=== PATIENT | female | born 2005 | race African-American/Black ===

== ENCOUNTER 2025-06-04 13:54 | Emergency (ER) | payer OTHER, SELFPAY ==
[2025-06-04 14:14] VITALS: BP 110/53; PULSE 63; RESP 16; TEMP 36.1; O2SAT 100; BMI 27.5
--- NOTE | 2025-06-04 14:16 | ED.GENADULT ---
HPI - General Adult General Chief complaint: Urogenital-Female Stated complaint: yeast infection? Time Seen by Provider: 06/04/25 14:15 Source: patient, RN notes reviewed and old records reviewed Mode of arrival: ambulatory Limitations: no limitations History of Present Illness ED Provider: Duane RICH narrative: 20-year-old female presents for evaluation of vaginal discharge with itching and irritation. The patient believes that she has a yeast infection. She was treated for a UTI and bacterial vaginosis to be getting this month complaining 2 courses of antibiotics She initially had some mild increase in vaginal discharge She reports that she did not take probiotics during or after the antibiotics. She reports drinking increase water with no change in his symptoms She has a primary doctor but not in OBGYN Related Data Previous Rx's ?Medication ?Instructions ?Recorded fluconazole 100 mg tablet 100 mg PO DAILY #2 tabs 06/04/25 (Diflucan) Allergies Allergy/AdvReac Type Severity Reaction Status Date / Time No Known Allergies Allergy Verified 06/04/25 14:16 Review of Systems Constitutional: Constitutional: Denies chills and Denies fever(s) Eyes: Eyes: Denies blurry vision Gastrointestinal: Gastrointestinal: Denies abdominal pain and Denies belching Genitourinary: Genitourinary: Reports vaginal discharge and Reports vaginal pruritus PMFSH Social History Social History Advance Directives: No Advance Directives Information Provided: Yes Physical Exam ED Vital Signs: Vital Signs - 24 hr 06/04/25 14:14 Temperature 96.9 F Pulse Rate 63 Respiratory Rate 16 Blood Pressure 110/53 L Pulse Oximetry 100 Oxygen Delivery Method Room Air BMI result Body Mass Index 27.5 Const General: healthy appearing, comfortable, no acute distress, alert and awake Nutritional Appearance: well nourished Orientation/consciousness: patient oriented x3 HENMT Head: Yes normocephalic and Yes atraumatic Eyes Eyelids: Yes eyelids normal Conjunctivae: conjunctivae normal Sclerae: sclerae normal Corneas: corneas normal Pupils: Equal, round and reactive pupils present EOM: EOMs intact bilaterally Neck Neck: Yes full ROM Resp Effort & Inspection: normal respiratory effort, able to speak in complete sentences and not labored Skin General skin exam: elasticity normal Neuro General: patient oriented x3 Cranial nerves: Yes Equal, round and reactive pupils present and Yes Bilaterally intact EOM present Cognition (Neuro): normal cognition Extrem Other: Moving all extremities well without any obvious deformities Medical Decision Making Medical Decision Making MDM Narrative: 20-year-old female presents for evaluation of vaginal itching and discharge. Clinically her diagnosis most likely vulvovaginal candidiasis as she was recently treated with 2 different antibiotics and did not use probiotics. She reports that she was also tested for sexually transmitted infections and was negative. I have a very low suspicion for PID and therefore we will treat with Diflucan. I encouraged the patient to follow up with her primary doctor for a pelvic examination return to the ER she is still symptomatic after completing a course of Diflucan Differential Diagnosis Differential Diagnoses: The differential diagnosis associated with the presentation includes Vaginitis Vulvovaginal candidiasis Yeast infection UTI Tests considered The following testing was considered but not selected: Recommended testing however the patient reports that she is not sexually active with men Discharge Plan Discharge Clinical Impression: Vaginitis Patient Disposition: Home, Self-Care Instructions: Yeast Infection (ED) Additional Instructions: Your symptoms are likely attributed to a yeast infection. Take Diflucan 1 dose today and then an additional dose in 1 week if you are still having symptoms. I recommend that you follow up with your primary doctor for a pelvic exam if you are still having symptoms after the 2nd dose of Diflucan Return for new or worsening symptoms Prescriptions: New fluconazole [Diflucan] 100 mg tablet 100 mg PO DAILY Qty: 2 0RF Rx Instructions: Take 1 tab today and 1 tab in 7 days if he remains symptomatic Print Language: Indonesian
[2025-06-04 14:42] VITALS: BP 110/53; PULSE 63; RESP 16; TEMP 36.1; O2SAT 100
--- OUTSIDE RECORDS SUMMARY | 2025-06-04 15:11 | XMS_ITS | Clinical Summary ---
Author Organization [facility] Address [address] [place] [address] Care Team Providers Care Diesel Plant Operator Name Role Phone Unavailable Primary Care Provider Unavailabl e Source Comments PLEASE NOTE, if this patient is a minor, it may be UNLAWFUL to discuss sensitive information that is contained in these records (such as FAMILY PLANNING, MENTAL HEALTH or SUBSTANCE ABUSE) with the minor patient's parent or other person without the patient's specific authorization.[facility] Medications No known medications Active Problems No known active problems Social History Tobacco Use Types Packs/Day Years Used Date Smoking Tobacco: Never Assessed Social Connections Answer Date Recorded Social Connections and Isolation 0 08/20/2020 Financial Resource Strain Answer Date R ecorded Financial Resource Strain 0 2019 Stress Answer Date Recorded Stress 0 08/20/2020 Physical Activity Answer Date Recorded Physical Activity 0 08/20/2020 Food Insecurity Answer Date Recorded Food 0 08/20/2020 Transportation Needs Answer Date Record ed Transportation 0 08/20/2020 Housing Stability Answer Date Recorded Housing 0 08/20/2020 Safety and Environment Answer Date Paul rded Safety 0 08/20/2020 Utilities Answer Date Recorded Utilities 0 08/20/2020 Employment Answer Date Recorded Employment 0 08/20/2020 Comments Unknown Sex and Gender Information Value Date Recorded Sex Assigned at Not on file Legal Sex Female 1:10 PM PDT Gender Identity Not on file Sexual Orientation Not on file Plan of Treatment Not on file Insurance [facility] [place] [id number] [facility] FAMILY PLANNING [place]
== END 2025-06-04 14:42 | disposition home or self-care (01) ==
PROVIDERS: Emergency Provider Emergency Medicine
DX: N76.0 Acute vaginitis (principal); L29.9 Pruritus, unspecified
CPT/HCPCS: 99282; 99283

== ENCOUNTER 2025-07-02 13:55 | Outpatient (REF) | payer OTHER, SELFPAY ==
[2025-07-03 12:06] LABS: Bacterial Vaginosis PCR NEGATIVE (Negative); Candida Group PCR DETECTED (Not Detect); Candida glab krusei PCR NOT DETECTED (Not Detect); Trichomonas vaginalis PCR NOT DETECTED (Not Detect)
== END 2025-07-02 13:56 | disposition home or self-care (01) ==
LOC: HO.LAB 13:55
PROVIDERS: Visit Provider Physician Assistant Medical
DX: N89.8 Other specified noninflammatory disorders of vagina (principal); R21 Rash and other nonspecific skin eruption
CPT/HCPCS: 81515

== ENCOUNTER 2025-07-02 13:55 | Outpatient (AMB) | payer OTHER, SELFPAY ==
[2025-07-02 13:59] VITALS: BP 102/50; PULSE 63; TEMP 37; O2SAT 96; BMI 29.9
--- NOTE | 2025-07-02 13:59 | AM.OFFWIN_ITS ---
Intake Vital Signs 07/02/25 13:59 Height 5 ft 3 in Weight 169 lb BMI 29.9 BP 102/50 L Blood Pressure Location Rt brachial Position Sitting Pulse 63 Pulse Source Pulse Oximeter Temp 98.6 F Temp Source Oral Pulse Oximetry (%) 96 Oxygen Delivery Method Room Air Intake Visit Reasons: EP Yeast infection? Intake Note: pt presents with concern for yeast infection, c/o redness, itch and flaking to skin of vaginal and anal area- denies any urinary tract s/s Allergies No Known Allergies Allergy (Verified 07/02/25 14:00) Do you need a note to return to daycare/school/sports/work: Yes HPI HPI Comments History of Present Illness Details History of Present Illness - The patient is a 20-year-old female pr esenting with symptoms suggestive of a recurrent yeast infection. - She reports redness, thicker discharge , and irritation, which she associates with a yeast infection. - Symptoms began towards the end of her menstrual period, approximately a week ago. - She has a history of urinary tract inf ection treated with antibiotics, which previously led to a yeast infection. - The patient was treated for bacterial vaginosis and urinary tract infection in the past, with subsequent development of a yeast infection. - She describes the discharge as thicker and white, with no significant odor, consistent with candidiasis. - The patient reports a similar episode of yeast infection following antibiotic treatment for a urinary tract infection. - She had her menses last week. - She denies vaginal discharge, abd pain , n/v/d, back pain, CP, SOB, fever, chills, or hematuria. Physical Exam General: Cooperative, healthy appearing, comfortable, no acute distress and well developed Orientation: Patient oriented x3 Respiratory: Normal respiratory effort and able to speak in complete sentences. Clear to auscultation bilaterally Cardiovascular: Regular rate and rhythm. Normal S1 and S2 GI: Normal to inspection. Soft to palpation and nontender : Erythema and white discharge noted in the vaginal vault. Erythema noted in the perineum and around anus. Skin: Redness, flaking, dry skin noted in the perineum. Patient was informed and verbally consented to the use of an ambient scribe for clinic note documentation during this visit. Review of Systems Const All systems reviewed & are unremarkable except as noted in HPI and below Physical Exam Vital Signs: Last Vital Signs Temp 98.6 F 07/02/25 13:59 Pulse 63 07/02/25 13:59 BP 102/50 L 07/02/25 13:59 Pulse Ox 96 07/02/25 13:59 Oxygen Delivery Method Room Air 07/02/25 13:59 BMI result Body Mass Index 29.9 Assessment & Plan Assessment & Plan (1) Vaginal discharge: Code(s): N89.8 - Other specified noninflammatory disorders of vagina (2) Rash: Code(s): R21 - Rash and other nonspecific skin eruption Plan Most likely candidiasis vs BV vs STD plan - Prescribed antifungal treatment with oral medication to be taken today and in three days. - Recommended swab testing to confirm diagnosis and rule out other infections. - miconazole cream to the area - recommend f/u with OBGYN - will call her with the results - follow up with PCP Orders: Orders Bacterial Vaginosis Panel Today N89.8 - Other specified noninflammatory disorders of vagina Medications: New miconazole nitrate 2% 1 appl topical BID 15 grams 0RF 7 days fluconazole may repeat second dose 72 hrs after first dose if symptoms persist 150 mg PO Q3D 2 tabs 0RF Discontinued fluconazole (Diflucan) Take 1 tab today and 1 tab in 7 days if he remains symptomatic Discontinued Reason: Patient Completed Course 100 mg PO DAILY 2 tabs 0RF Coding Level of Care Code Est Pt Level 3 (69925) Diagnoses Vaginal discharge N89.8 Rash R21
--- OUTSIDE RECORDS SUMMARY | 2025-07-02 14:48 | XMS_ITS | Clinical Summary ---
Author Organization [facility] Address [address] [place] [address] Care Team Providers Care Pediatric Anesthesiologist Name Role Phone Unavailable Primary Care Provider [...] Plan of Treatment Not on file Insurance [facility] [place] [id number] [facility] FAMILY PLANNING [place]
--- OUTSIDE RECORDS SUMMARY | 2025-07-02 14:48 | XMS_ITS | Clinical Summary ---
Author Organization [facility] Address [address] [place] [address] Phone Care Team Providers Care Manager Produce Name Role Phone Jewell Echols MD Primary Care Provider + Allergies No known active allergies Medications Hospital, Clinic, or Other Facility Administered Medication Ordered Dose Route Frequency Start Date End Date Status etonogestreL (NEXPLANON) subdermal implant 68 mg 68 mg IDrm Every 3 years 11/19/2020 Active Active Problems Patient Care Coordination No te Formatting of this note migh t be different from the original. Patient cell phone: [phone] Problem Noted Date Diagnosed Date Chlamydia 07/19/2022 Assessment & Plan (07/19/2022 2:48 PM EDT): Cassidy is a 17-year-old female who presents for follow-up of her positive chlamydia test from 07/13/2022. She reports that she had seen Dr. Echols because she was having some dysuria. She initially thought it was a UTI and but that was negative. She was also tested for STIs at that time and a chlamydia tested positive on 07/13/2022. Patient reports that she has been with her boyfriend of 2 months and has been monogamous with him. They are not been using condoms consistently. Past history significant for chlamydia when she was at [facility] in 07/15/2021, for which she was treated with azithromycin. On reviewing the notes there was no evidence of any repeat testing after the initial positive result. The patient is asymptomatic with no dysuria or vaginal discharge or abdominal pain. She has been tested for HIV and syphilis at the last visit with Dr. Echols and both of those were negative. Of note on reviewing the chart from [facility], she has a positive hepatitis C antibody, with a negative hepatitis C RNA in July 2021. I did asked the patient about risk of .Patient reports that she has a contraceptive implant and so does not get her menses regularly. Plan: 1. Discussed sexually transmitted infections including chlamydia. Reinforced that she must take a medication and also have her partner treated. I gave her a prescription for expedited partner treatment and explained she could take it to the pharmacy to have it filled. I recommended that she return to the clinic in about 3 months so that she can can re-test and make sure that she is not reinfected. Discouraged unprotected sexual activity until both partners have been treated effectively for 7 days. 2. I also recommended that she follow-up with Dr. Echols about the hepatitis C antibody. She did not want to do any blood test today and her viral RNA had been negative in the past. She will follow-up with Dr. Echols about this when she sees her in September when she has an appointment. Patient expressed understanding Patient expressed understanding of treatment and consequences of chlamydia, and the importance of getting her partner treated. Vasovagal syncope 09/09/2020 Assessment & Plan (09/09/2020 5:00 PM EST): Had a few episodes in the past, one associated with smoking hookah, another when getting off the toilet 3 months ago. Went to the ED at that time and EKG was normal, told to get up more slowly. Hasn't been drinking any water during the day. Encouraged more water intake. Subluxation of patella, left, initial encounter 09/09/2020 Assessment & Plan (09/09/2020 4:59 PM EST): Happens once every year, about three times in total. Will be exercising and feels like something pops out of place. Very painful, will stop exercising and seems to pop back into place but has some swelling afterwards. In between episodes is totally fine. Symptoms consistent with subluxation of patella. Exam normal in the office today. Plan: - Given knee strengthening exercises as well as stretching exercises - If continues to bother her, or starts occurring more often, can send to PT Vaginal discharge 09/09/2020 Assessment & Plan (09/09/2020 4:57 PM EST): Last sexual intercourse 2-3 weeks ago, since then has been having vaginal discharge that is slightly different from normal - more clear and smells metallic . No itchiness, no purulent discharge. No abdominal pain, fevers, N/V. On exam, appeared normal but maybe slightly hobbs. Already had STD testing after last intercourse that was negative. Plan - Will send culture for BV, will call patient with results Overweight 09/09/2020 Immunizations Immunization Administration Dates Next Due COVID-19 (Pre-08/28) Pfizer Vaccine, mRNA, PF [id number] FORMULATION 08/24/2009 HPV,quadrivalent 03/26/2015 INFLUENZA, SPLIT VIRUS, TRIVALENT W/ PRESERVATIV E IM 11/29/2012,08/24/2009 Influenza Quadrivalent Preservative Free IM 09/06,09/09/2020 Meningococcal MCV4O 09/09/2020 Meningococcal MPSV4 03/26/2015 Tdap 03/26/2015 Family History Medical History Relation Comments Cervical cancer Maternal Aunt Coronary artery disease Maternal Grandfather Heart disease Maternal Grandfather Diabetes Maternal Grandmother Coronary artery disease Mother Heart disease Mother Hypertension Mother Aneurysm Paternal Grandmother Relation Status Comments Brother Alive Father Alive Maternal Aunt Maternal Grandfather Alive Maternal Grandmother Alive Mother Alive Paternal Grandfather Alive Paternal Grandmother Alive Social History Tobacco Use Types Packs/Day Years Used Date Smoking Tobacco: Never Smokeless Tobacco: Never Tobacco Cessation:Counseling Given: Not Answered Alcohol Use Standard Drinks/Week Comments Yes 0 (1 standard drink = 0.6 oz pur e alcohol) socially Child or Family Care Answer Date Record ed Do you have problems with on e of the following making it difficult for you to work, study, or receive health care? No 09/21/2022 Education Answer Date Recorded Are you interested in more education? Not on cherry e 10/02/2024 Are you concerned about learning? Not on file 10/02/2024 No 10/02/2024 No 10/02/2024 Food Answer Date Recorded Within the past 6 months we worried whether our food would run out before we got money to buy more. Never True 09/21/2022 Within the past 6 months the food we bought just didn't last and we didn't have enough money to get more. Never True Residential Stability Answer Date Recor ded What is your housing situation today? I have yue mccray 09/21/2022 How many times have you move d in the past 12 months? Zero (I did not move) 09/21/2022 Paying for Meds Answer Date Recorded Do you have trouble paying for medicines? No 09/21/2022 Paying Utility Bills Answer Date Record ed Do you have trouble paying your heating or elect ricity bill? No 09/21/2022 Transportation Answer Date Recorded Has the lack of transportati on kept you from medical appointments or from getting medications? Yes 09/21/2022 Unemployment Answer Date Recorded Are you currently unemployed or working on a part-time or temporary basis, and looking for work? No 09/21/2022 Digital Access Answer Date Recorded No 04/01/2023 No 04/01/2023 Reliable internet access at home? Not on file 04/01/2023 Device with a working camera? Not on file Intimate Partner Violence Answer Date R ecorded Are you denied basic needs s uch as food, clothing, or medical care? No 03/09/2025 In the past 12 months have y ou been in a relationship with a person who hurts, threatens, or tries to control you? No 03/09/2025 Are you denied basic needs s uch as food, clothing, or medical care? No 03/09/2025 In the past 12 months have y ou been in a relationship with a person who hurts, threatens, or tries to control you? No 03/09/2025 Comments No Sex and Gender Information Value Date Recorded Sex Assigned at Not on file Legal Sex Female 4:33 PM EDT Gender Identity Not on file Sexual Orientation Not on file Last Filed Vital Signs Vital Sign Reading Time Taken Comments Blood Pressure 114/73 03/09/2025 1:08 PM EDT Pulse 92 03/09/2025 1:08 PM EDT Temperature 36.8 C (98.3 F) 03/09/2025 1:08 PM EDT Respiratory Rate 19 03/09/2025 1:08 PM EDT Oxygen Saturation 100% 03/09/2025 1:08 PM EDT Inhaled Oxygen Concentration - - Weight 69.9 kg (154 lb 1.6 oz) 03/09/2025 1:04 P M EDT Height 161 cm (5' 3.39 ) 09/21/2022 1:02 PM EST Body Mass Index 26.97 09/21/2022 1:02 PM EST Plan of Treatment Health Maintenance Due Date Last Done Comments MMR VACCINES (1 of 1 - Standard series) 2005 COMBINED DTaP,Tdap,Td (2 - Td or Tdap) 04/23/2015 03/26/2015 HPV VACCINES (2 - 2-dose series) 09/26/2015 03/26/2015 MENINGOCOCCAL VACCINES (B) (1 of 2 - Standard) 2020 DEPRESSION SCREENING 09/21/2023 09/21/2022, 09/21/20 22 Contraceptive Implant 11/19/2023 11/19/2020 COVID-19 VACCINE ( season) 2024 07/14/2021, 03/24/2021 PAP SMEAR 2025 Adult Td,Tdap Booster 03/26/2025 03/26/2015 CHLAMYDIA SCREENING 03/09/2026 03/09/2025, 03/09/2025, 03/09/2025, Additional history exists SMOKING Hx and SMOKELESS TOBACCO SCREENING 03/09/2026 03/09/2025 MENINGOCOCCAL VACCINES (ACWY) Completed 09/09/2020, 03/26/2015 ADOLESCENT UNIVERSAL LIPID SCREENING Completed 07/13/2022 HEPATITIS C SCREENING Completed 09/21/2022, 022 HIV ONE-TIME SCREENING (18-65 YEARS) Completed 03/09/2025 HEPATITIS A VACCINES Aged Out No long er eligible based on patient's age to complete this topic HIB VACCINES Aged Out No longer eligi ble based on patient's age to complete this topic PNEUMOCOCCAL VACCINES (0-49 years) Aged Out No longer eligible based on patient's age to complete this topic Medical Devices Not on file Procedures Procedure Name Priority Date/Time Associated Diagnosis Comments CHLAMYDIA TRACHOMATIS AND NEISSERIA GONORRHOEAE NUCLEIC ACID DETECTION STAT 03/09/2025 1:32 PM EDT HEPATITIS C ANTIBODY, QUALITATIVE Routine 09/21/2022 1:47 PM EST Need for hepatitis C screening test LIPID PANEL Routine 07/13/2022 2:42 PM EDT Healthcare maintenance from Last 3 Months or Most Recently Relevant to Health Maintenance Results * (ABNORMAL) Chlamydia Trachomatis and Neisseria Gonorrhoeae Nucleic Acid Detection (03/09/2025 1:32 PM EDT) C.TRACHOMATIS, AMP Refused(A ) Chlamydia trachomatis (CT) DNA NOT DETECTED [facility] Comment: Collection method not acceptable. IMPROPER SPECIMEN CONTAINER RECEIVED CULTURETTE NEEDED EM PCR YELLOW TOP TUBE Specimen type (C. Trachomatis DNA) THROAT [facility] N.Gonorrhoeae, AMP Refused(A ) Neisseria Gonorrhoeae (NG) DNA NOT DETECTED [facility] Comment: Collection method not acceptable. IMPROPER SPECIMEN CONTAINER RECEIVED CULTURETTE NEEDED EM PCR YELLOW TOP TUBE Specimen type THROAT [facility] Other (Throat) 03/09/2025 1: 32 PM EDT 03/09/2025 1:57 PM EDT us Carrie Galeas MD NON CULTURE MICROBIOLOGY [facility] Result Performing Organization Address City/[facility]/ZIP Co de Phone Number [address] [address] * Hepatitis C antibody, qualitative (09/21/2022 1:47 PM EST) HCV ANTIBODY Negative Negative [facility] Comment:Antibodies to HCV no t detected. Does not exclude the possibility of exposure to HCV. 09/21/2022 1:47 PM EST 09/21/2022 5:58 PM EST us Jewell Echols MD LAB BLOOD ORDERABLES Fin al Result Performing Organization Address [facility]/ZIP Co de Phone Number [address] [address] * (ABNORMAL) Lipid panel (07/13/2022 2:42 PM EDT) HDL 52 35 - 100 mg/dL [facility] CHOLESTEROL 116 <200 mg/dL [facility] TRIGLYCERIDES 24(L) 40 - 150 mg/dL [facility] LDL 59 50 - 129 mg/dL [facility] CARDIAC RISK RATIO 2.2 0.0 - 5.0 [facility] NON-HDL CHOLESTEROL 64 mg/dL [facility] Comment:NCEP ATP III guideli nate suggest a non-HDL cholesterol goal 30 mg/dl higher than the patient-specific LDL goal. 07/13/2022 2:42 PM EDT 07/13/2022 7:52 PM EDT us Jewell Echols MD LAB BLOOD ORDERABLES Fin al Result [address] [address] from Last 3 Months or Most Recently Relevant to Health Maintenance Insurance EMPLOYEES FAMILY EMPLOYEES FAMILY EMPLOYEES FAMILY EMPLOYEES FAMILY EMPLOYEES FAMILY [facility] FAMILY EMPLOYEES FAMILY EMPLOYEES FAMILY EMPLOYEES FAMILY EMPLOYEES FAMILY EMPLOYEES FAMILY [facility] EMPLOYEES FAMILY [facility] EMPLOYEES FAMILY * Guarantor: RAJANI KELLER Account Type Relation to Patient Date of Phone Billing Address Personal/Family [address] [place] [address] EMPLOYEES FAMILY * Guarantor: RAJANI KELLER Account Type Relation to Patient Date of Phone Billing Address Personal/Family [address] [place] [address] [employer] FAMILY * Guarantor: RAJANI KELLER Account Type Relation to Patient Date of Phone Billing Address Personal/Family [address] [place] [address] [employer] FAMILY * Guarantor: RAJANI KELLER Account Type Relation to Patient Date of Phone Billing Address Personal/Family [address] [place] [address] [employer]ES FAMILY * Guarantor: RAJANI KELLER Account Type Relation to Patient Date of Phone Billing Address Personal/Family [address] [place] [id number] [place] [address] EMPLOYEES FAMILY Care Teams Manager Produce Relationship Specialty Start Date End Date Jewell Echols MD [address] [address] [email or web address] PCP - General Adolescent Medicine 09/09/20 Additional Source Comments The information contained in this document represents components of the legal health record. It is not the complete legal health record.[facility]
== END 2025-07-02 15:05 | disposition home or self-care (01) ==
PROVIDERS: Visit Provider Physician Assistant Medical
DX: N89.8 Other specified noninflammatory disorders of vagina (principal); R21 Rash and other nonspecific skin eruption

== ENCOUNTER 2025-08-05 09:32 | Emergency (ER) | payer OTHER, SELFPAY ==
[2025-08-05 09:51] VITALS: BP 127/76; PULSE 92; RESP 16; TEMP 36.6; O2SAT 100; BMI 29.9
[2025-08-05 10:27] LABS: IDNOW Serial# 55D5AD1C; Influenza B2 Negative (Negative)
[2025-08-05 10:34] LABS: IDNOW Serial# 6674DD1D; Strep A Nucleic Acid Negative (Negative)
[2025-08-05 11:36] LABS: IDNOW Serial# 58CA691E
[2025-08-05 11:37] LABS: COVID-19 Test Negative (Negative)
--- NOTE | 2025-08-05 12:18 | ED.URI ---
HPI - URI/Sore Throat General Chief Complaint: Upper Respiratory Symptoms Stated Complaint: Flu symptoms Time Seen by Provider: 08/05/25 12:02 Source: patient, family and old records reviewed Mode of arrival: ambulatory Limitations: no limitations History of Present Illness ED Provider: TODD RICH Narrative: 20 yo female with no sig PMH here with c/o URI x 6 days with cough, mucous, runny nose, congestion and fevers. She was at the [facility] before this. She denies known sick contacts. She can eat and drink. Her throat is sore. She has tried saline mist, OTC cold meds but isn't better. NO recent travel, no hx of asthma. MD elicited complaint: fever, cough, sore throat, nasal congestion and sinus pain Onset (ago): day(s) (6) Consistency: progressively worsening Severity: moderate Able to tolerate fluids by mouth: Yes Exacerbating factors: swallowing and leaning forward Relieving factors: nothing Context: other Associated symptoms: fever, chills, myalgias, nasal congestion, sore throat and cough Treatments prior to arrival: cold medicine Related Data Home Medications ?Medication ?Instructions ?Recorded ?Confirmed lactobacillus combination no.9 4 PO DAILY 07/02/25 billion cell capsule (Adult 50 Plus Probiotic) Previous Rx's ?Medication ?Instructions ?Recorded fluconazole 150 mg tablet 150 mg PO Q3D #2 tabs 07/02/25 miconazole nitrate 2 % topical 1 appl topical BID 7 days #15 grams 07/02/25 cream amoxicillin 875 mg tablet 875 mg PO BID #14 tabs 08/05/25 fluconazole 150 mg tablet 150 mg PO Q3D 2 doses #2 tabs 08/05/25 prednisone 20 mg tablet 40 mg (2 x 20 mg) PO DAILY 3 days 08/05/25 #6 tabs Allergies Allergy/AdvReac Type Severity Reaction Status Date / Time No Known Allergies Allergy Verified 08/05/25 09:53 Review of Systems Review of Systems: Constitutional : positive Fever, positive Chills, positive fatigue, positive Malaise ENT/Mouth : positive sore throat, positive runny nose Eyes: No Discharge Cardiovascular : No Chest Pain, No SOB Respiratory : pos Cough, pos Sputum Gastrointestinal : No Nausea, No Vomiting, No Diarrhea Genitourinary : No Dysuria, No Urinary Frequency Musculoskeletal : positive Myalgia Yes all other systems are reviewed and are negative PMFSH Past Medical History Attestation statement: The following information was validated with the patient. Source: old records reviewed Medical History No pertinent past medical history Social History Social History (Updated 08/05/25 @ 12:26 by Janet Wilcox DO) Patient Tobacco Use Status: Tobacco use Unknown Physical Exam Vital Signs: Vital Signs: Last Vital Signs Temp 97.9 F 08/05/25 09:51 Pulse 92 08/05/25 09:51 Resp 16 08/05/25 09:51 BP 127/76 08/05/25 09:51 Pulse Ox 100 08/05/25 09:51 O2 Del Method Room Air 08/05/25 09:51 BMI result Body Mass Index 29.9 Appearance: Alert. Oriented X3. No acute distress. Eyes: Pupils equal, round and reactive to light. ENT: Pharynx mild erythema otherwise normal, bilateral TMs normal, bilateral mild max sinus ttp . Neck: Normal inspection. Neck supple. CVS: Normal heart rate and rhythm. Pulses normal. Respiratory: No respiratory distress. Breath sounds normal. Abdomen: Soft and nontender. Skin: Skin warm and dry. Normal skin color. Extremities: No lower extremity edema. Neuro: Oriented X 3. No motor deficit. No sensory deficit. Medical Decision Making Medical Decision Making MDM Narrative: 20 yo female worsening URI x 6 days with cough, runny nose, sinus congestion and pain. She has clear lungs no distress she is tolerating PO. She has signs of sinusitis on exam and sig nasal congestion - started on amoxicilin and PO prednisone. She will be given diflucan given hx of vaginitis and abx - stable for outpatient care Differential Diagnosis Differential Diagnoses: The differential diagnosis associated with the presentation includes strep throat, viral syndrome, sinusitis Admission/Observation Consideration of admission/observation: Escalation of care including admission/observation considered not toxic, well hydrated, stable VS can be managed as outpatient Lab Data [facility] Lab Attestation statement: I reviewed the patient's lab results. Labs: Lab Results 08/05/25 Range/Units 09:57 COVID-19 (BRENNON) Negative (Negative) COVID-19 Clin Com See Note Influenza Type A (STEFANO) Negative (Negative) Influenza Type B (STEFANO) Negative (Negative) Influenza A & B Note See Note S. pyogenes GrpA STEFANO Negative (Negative) External Record Review External record reviewed: Outpatient record Prescription Management I considered prescription management with: Antibiotic and Other Discharge Plan Discharge Clinical Impression: Upper respiratory infection, Sinusitis Patient Disposition: Home, Self-Care Instructions: Sinusitis (ED), Viral Syndrome (ED) Additional Instructions: negative for covid, flu, strep throat use saline spray over the counter - metal canister with more powerful spray return for worsening pain, fevers, changes in pain, trouble breathing, chest pain or any other concerns On amoxicillin, softer bowel movements are to be expected. Call your provider if you move your bowels more than 4 times a day, your bowel movements are almost all liquid, or you get a rash.? Prescriptions: New amoxicillin 875 mg tablet 875 mg PO BID Qty: 14 0RF fluconazole 150 mg tablet 150 mg PO Q3D 0 Days Qty: 2 0RF Rx Instructions: may repeat second dose 72 hrs after first dose if symptoms persist prednisone 20 mg tablet 40 mg PO DAILY 3 Days Qty: 6 0RF No Action Adult 50 Plus Probiotic 4 billion cell capsule PO DAILY miconazole nitrate 2 % cream 1 appl topical BID 7 Days Qty: 15 0RF fluconazole 150 mg tablet 150 mg PO Q3D Qty: 2 0RF Rx Instructions: may repeat second dose 72 hrs after first dose if symptoms persist Stand Alone Forms: Work/School Release Print Language: Kuwaiti
[2025-08-05 12:33] VITALS: BP 127/76; PULSE 92; RESP 16; TEMP 36.6; O2SAT 100
--- NOTE | 2025-08-05 12:34 | PC.NURSE ---
PT WAS SEEN BY PROVIDER AND DISCHARGED. PRESCRIPTIONS SENT. PT AGREEABLE TO DISCHARGE PLAN
--- OUTSIDE RECORDS SUMMARY | 2025-08-05 13:35 | XMS_ITS | Clinical Summary ---
Author Organization [facility] Address [address] [place] [address] Care Team Providers Care Deli/Bakery Associate Name Role Phone Unavailable Primary Care Provider [...] Plan of Treatment Not on file Insurance [facility] [place] [id number] [facility] [employer]ILY PLANNING [place]
--- OUTSIDE RECORDS SUMMARY | 2025-08-05 13:37 | XMS_ITS | Clinical Summary ---
Author Organization [facility] Address [address] [place] [address] Phone Care Team Providers Care Environmental Sampling Technician Name Role Phone Jewell Echols MD Primary [...] different from the original. Patient cell phone: [phone] Problem Noted Date Diagnosed Date Chlamydia 07/19/2022 [...] significant for chlamydia when she was at [facility] in 07/15/2021, for which she was [...] Of note on reviewing the chart from [facility], she has a positive hepatitis C antibody, [...] will call patient with results Overweight 09/09/2020 Encounters Date Type Department Care Team Description 07/29/2025 Telephone [facility] [address] [facility] [address] [place] [address] Marjorie Barrios RN from Last 3 Months Immunizations Immunization Administration Dates Next Due COVID-19 (Pre-08/28) Pfizer Vaccine, mRNA, PF [id number] FORMULATION 08/24/2009 HPV,quadrivalent 03/26/2015 INFLUENZA, SPLIT VIRUS, [...] 09/21/2022, 09/21/20 22 Contraceptive Implant 11/19/2023 11/19/2020 PAP SMEAR 2025 Adult Td,Tdap Booster 03/26/2025 03/26/2015 INFLUENZA VACCINE (#1) 2025 2, 09/09/2020, 11/29/2012, Additional history exists COVID-19 VACCINE ( season) 2025 07/14/2021, 03/24/2021 CHLAMYDIA SCREENING 03/09/2026 03/09/2025, 03/09/2025, 03/09/2025, Additional [...] ) Chlamydia trachomatis (CT) DNA NOT DETECTED [facility] Comment: Collection method not acceptable. IMPROPER SPECIMEN CONTAINER RECEIVED CULTURETTE NEEDED EM PCR YELLOW TOP TUBE Specimen type (C. Trachomatis DNA) THROAT [facility] N.Gonorrhoeae, AMP Refused(A ) Neisseria Gonorrhoeae (NG) DNA NOT DETECTED [facility] Comment: Collection method not acceptable. IMPROPER SPECIMEN CONTAINER RECEIVED CULTURETTE NEEDED EM PCR YELLOW TOP TUBE Specimen type THROAT [facility] Other (Throat) 03/09/2025 1: 32 PM EDT 03/09/2025 1:57 PM EDT us Carrie Galeas MD NON CULTURE MICROBIOLOGY [employer] Result [facility] [address] [place] [address] * Hepatitis C antibody, qualitative (09/21/2022 1:47 PM EST) HCV ANTIBODY Negative Negative [facility] Comment:Antibodies to HCV no t detected. Does not exclude the possibility of exposure to HCV. 09/21/2022 1:47 PM EST 09/21/2022 5:58 PM EST Jewell Echols MD LAB BLOOD ORDERABLES Fin al Result Performing Organization Address [facility] Co de Phone Number [address] [address] * (ABNORMAL) Lipid panel (07/13/2022 2:42 PM EDT) HDL 52 35 - 100 mg/dL [facility] CHOLESTEROL 116 <200 mg/dL [facility] TRIGLYCERIDES 24(L) 40 - 150 mg/dL [facility] LDL 59 50 - 129 mg/dL [facility] CARDIAC RISK RATIO 2.2 0.0 - 5.0 [facility] NON-HDL CHOLESTEROL 64 mg/dL [facility] Comment:NCEP ATP III guideli nate suggest a non-HDL cholesterol goal 30 mg/dl higher than the patient-specific LDL goal. 07/13/2022 2:42 PM EDT 07/13/2022 7:52 PM EDT Jewell Echols MD LAB BLOOD ORDERABLES Fin al Result Performing Organization Address [facility] Co de Phone Number [address] [address] from Last 3 Months or Most Recently Relevant to Health Maintenance Insurance [facility] [place] [id number] [employer]OYEES FAMILY [employer]PLOYEES FAMILY EMPLOYEES FAMILY EMPLOYEES FAMILY EMPLOYEES FAMILY EMPLOYEES FAMILY EMPLOYEES FAMILY EMPLOYEES FAMILY [employer]OYEES FAMILY * Guarantor: RAJANI KELLER Account Type Relation to Patient Date of Phone Billing Address Personal/Family [address] [place] [address] [employer] FAMILY * Guarantor: RAJANI KELLER Account Type Relation to Patient Date of Phone Billing Address Personal/Family [address] [place] [address] [employer] * Guarantor: RAJANI KELLER Account Type Relation to Patient Date of Phone Billing Address Personal/Family [address] [place] [address] [employer] * Guarantor: RAJANI KELLER Account Type Relation to Patient Date of Phone Billing Address Personal/Family [address] [employer] * Guarantor: RAJANI KELLER Account Type Relation to Patient Date of Phone Billing Address Personal/Family [address] [employer] FAM[employer] Care Teams Environmental Sampling Technician Relationship Specialty Start Date End Date Jewell Echols MD [address] [place] [phone] [email or web address] PCP - General Adolescent Medicine 09/09/20 Additional Source Comments The information contained in this document represents components of the legal health record. It is not the complete legal health record.[facility]
== END 2025-08-05 12:34 | disposition home or self-care (01) ==
PROVIDERS: Emergency Provider Emergency Medicine
DX: J06.9 Acute upper respiratory infection, unspecified (principal); J32.9 Chronic sinusitis, unspecified; R50.9 Fever, unspecified; Z03.818 Encounter for observation for suspected exposure to other biological agents ruled out
CPT/HCPCS: 87502; 87635; 87651; 99282; 99283